=== PATIENT | female | born 1975 | race Caucasian/White ===

== ENCOUNTER 2018-01-10 22:47 | Emergency (ER) | payer SELFPAY ==
[~2018-01-10] VITALS: Ht 160 cm; Wt 109.3 kg
[2018-01-10 22:59] VITALS: Ht 160 cm; Wt 109.3 kg
[2018-01-11 00:37] VITALS: BP 186/98
== END 2018-01-11 00:37 | disposition home or self-care (01) ==
LOC: ED 22:47
DX: G44.209 Tension-type headache, unspecified, not intractable (principal); I10 Essential (primary) hypertension; Z88.0 Allergy status to penicillin
CPT/HCPCS: J0780; J1885